=== PATIENT | female | born 1950 | race Caucasian/White ===

== ENCOUNTER 2017-01-06 14:00 | Emergency (ER) | payer MEDICARE ==
[~2017-01-06] VITALS: Ht 167.6 cm; Wt 55.0 kg
[2017-01-06] MEDS ORDERED: MOTRIN800 MG PO (15:00)
[2017-01-06 15:08] VITALS: BP 121/79
== END 2017-01-06 15:29 | disposition home or self-care (01) ==
LOC: ED 14:00
DX: S40.011A Contusion of right shoulder, initial encounter (principal); W54.8XXA Other contact with dog, initial encounter; Y93.K1 Activity, walking an animal; Y92.410 Unspecified street and highway as the place of occurrence of the external cause